=== PATIENT | male | born 1975 | race Caucasian/White ===

== ENCOUNTER 2017-11-08 04:10 | Emergency (ER) | payer OTHER ==
[~2017-11-08] VITALS: Ht 165.1 cm; Wt 98.0 kg
[2017-11-08 04:53] VITALS: BP 142/98
== END 2017-11-08 04:53 | disposition home or self-care (01) ==
LOC: ED 04:10
DX: M65.221 Calcific tendinitis, right upper arm (principal); I10 Essential (primary) hypertension; E78.00 Pure hypercholesterolemia, unspecified
CPT/HCPCS: J1885

== ENCOUNTER 2017-11-08 11:37 | Emergency (ER) | payer OTHER ==
[~2017-11-08] VITALS: Ht 165.1 cm; Wt 97.5 kg
[2017-11-08 11:49] VITALS: Ht 165.1 cm; Wt 97.5 kg
[2017-11-08 12:29] VITALS: BP 141/100
== END 2017-11-08 12:29 | disposition home or self-care (01) ==
LOC: ED 11:37
DX: M65.221 Calcific tendinitis, right upper arm (principal); I10 Essential (primary) hypertension; E78.00 Pure hypercholesterolemia, unspecified; F17.210 Nicotine dependence, cigarettes, uncomplicated; Z71.6 Tobacco abuse counseling
CPT/HCPCS: 99406; J1100; J1885